=== PATIENT | male | born 1960 | race Hispanic/Latino ===

== ENCOUNTER 2018-09-02 10:26 | Emergency (ER) | payer OTHER ==
[~2018-09-02] VITALS: Ht 167.6 cm; Wt 63.5 kg
[2018-09-02] MEDS ORDERED: SODIUM CHLORIDE 0.9% 1000ML 1,000 ML IV SCH (10:45)
[2018-09-02] MEDS ORDERED: KETOROLAC TROMETHAMINE 30 MG/ML VIAL IV STA (10:53)
[2018-09-02 14:24] VITALS: BP 148/80
[2018-10-09] MEDS ORDERED: MULTI-VITAMIN1 EACH (10:29)
[2018-10-09] MEDS ORDERED: ALLOPURINOL (10:29)
== END 2018-09-02 13:55 | disposition home or self-care (01) ==
LOC: FSED 10:26
DX: R10.11 Right upper quadrant pain (principal)
CPT/HCPCS: 76705; 80053; 80307; 81003; 85025; 99284; J1885; J7030

== ENCOUNTER → 2018-09-14 | Outpatient (CLI) | payer OTHER ==
[~2018-09-14] MED LIST: ALLOPURINOL; DIATRIZOATE MEGL/DIATRIZOA SOD 30 ML BTL PO ONE; IOPAMIDOL 370 MG/ML 200 ML INFUS..BTL INJ ONE; MULTI-VITAMIN1 EACH; SODIUM CHLORIDE 0.9% 50ML 50 ML ONE
[2018-09-14 13:51] LABS: BLOOD UREA NITROGEN 9 mg/dL (7-26); BUN/CREATININE RATIO 12 (6-25); CREATININE, SERUM 0.78 mg/dL (0.72-1.25); EST GLOMERULAR FILTRATION RATE > 60 ML/MIN (60-)
--- NOTE | 2018-09-14 14:39 | Diagnostic Imaging Report ---
EXAM: CT Abdomen WITH contrast INDICATION: Right upper quadrant pain COMPARISON: 09/02/2018 ultrasound, no report available TECHNIQUE: Abdomen was scanned utilizing a multidetector helical scanner after administration of IV contrast. Coronal and sagittal reformations were obtained. IV CONTRAST: 100 mL Isovue-370 COMPLICATIONS: None RADIATION DOSE: Total DLP:176 mGy*cm Estimated effective dose: (DLP x 0.015 x size factor) mSv CTDIvol has been reviewed. It is below the limits set by the Radiation Protocol Committee (RPC). Appropriate CT dose reduction techniques were utilized. FINDINGS: Lung Bases: No acute findings. Solid Organs: Mild decreased attenuation of the liver suggesting steatosis. Probable bilobed cyst inferior right hepatic lobe series 2 image 32. Other To small to characterize hypodensities more superiorly image 12. Just inferior to the liver there is an ill-defined masslike area measuring 36 x 36 x 38 mm, best seen axial image 30 and sagittal image 55 with mild surrounding inflammation, directly adjacent to the hepatic flexure. 13 mm cystic lesion left kidney too small to definitively characterize. Solid organs otherwise unremarkable. Upper GI Tract: No small bowel obstructive changes. Vascularity: Mild to moderate aortic vascular calcifications with no aneurysm. Lymph Nodes: No suspicious adenopathy. Other: None. Bones: No acute findings. IMPRESSION: 38 mm focal region inferior to the liver with surrounding inflammation directly adjacent to hepatic flexure. Finding statistically represents a sequela of epiploic appendagitis and/or omental infarction. Given masslike appearance, underlying malignancy of the liver or: Not entirely excluded. Follow-up liver mass CT recommended in 4-6 weeks after resolution of acute symptoms. Signed by: Dr. Braden Caceres MD on 09/14/2018 2:36 PM
== END ==
LOC: CT 12:40
PROVIDERS: ATTEND Surgery
DX: R10.11 Right upper quadrant pain (principal)
CPT/HCPCS: 36415; 74160; 82565; 84520; Q9967

== ENCOUNTER → 2018-10-12 | Day surgery (SDC) | payer OTHER ==
[2018-10-09 11:16] LABS: BASOPHILS # (AUTO) 0.1 (0.0-0.1); BASOPHILS % 0.9 % (0.0-1.0); EOSINOPHILS # (AUTO) 0.1 (0.0-0.4); EOSINOPHILS % 1.1 % (0.0-6.0); HEMATOCRIT 40.3 % (38.2-49.6); HEMOGLOBIN 13.4 g/dL (14.0-18.0); LYMPHOCYTES % 35.1 % (18.0-39.1); MEAN CORPUSCULAR HGB CONC 33.3 g/dL (31-35); MEAN CORPUSCULAR VOLUME 90.2 fL (81-99); MONOCYTES # (AUTO) 0.5 (0.2-0.8); MONOCYTES % 9.7 % (4.4-11.3); PLATELET COUNT 210 x10e3/uL (140-360); RED BLOOD COUNT 4.47 x10e6/uL (4.3-5.7); RED CELL DISTRIBUTION WIDTH 12.8 % (11.7-14.4)
[2018-10-09 11:25] LABS: INR 0.91; PROTHROMBIN TIME 13.1 seconds (11.9-14.5)
[2018-10-09 11:26] LABS: PARTIAL THROMBOPLASTIN TIME 29.1 seconds (23.8-35.5)
[2018-10-09 11:35] LABS: ALANINE AMINOTRANSFERASE 18 IU/L (0-55); ALBUMIN 4.4 g/dL (3.5-5.0); ALBUMIN/GLOBULIN RATIO 1.5 (0.8-2.0); ALKALINE PHOSPHATASE 76 IU/L (40-150); BLOOD UREA NITROGEN 7 mg/dL (7-26); BUN/CREATININE RATIO 9 (6-25); CALCIUM 9.2 mg/dL (8.4-10.2); CARBON DIOXIDE 26 mmol/L (22-29); CHLORIDE 105 mmol/L (98-107); CREATININE, SERUM 0.77 mg/dL (0.72-1.25); EST GLOMERULAR FILTRATION RATE > 60 ML/MIN (60-); GLUCOSE 91 mg/dL (74-118); SODIUM 141 mmol/L (136-145)
--- NOTE | 2018-10-09 13:37 | Diagnostic Imaging Report ---
Frontal and lateral views of the chest. HISTORY: Preop, JOSR and colonoscopy COMPARISON: None available. DISCUSSION: Lungs: The lungs are well inflated. No evidence of a consolidative pneumonia or pulmonary alveolar edema. Pleura: No pleural effusion or pneumothorax. Heart and mediastinum: The cardiomediastinal silhouette appears unremarkable. Bones: No acute osseous lesion. Mild multilevel degenerative disc changes. IMPRESSION: No acute radiographic abnormality. Signed by: Dr. Mickey Davies D.O., M.M.M. on 10/09/2018 1:34 PM
[~2018-10-12] MED LIST changes: -DIATRIZOATE MEGL/DIATRIZOA SOD 30 ML BTL PO ONE; +FENTANYL CITRATE/PF 100MCG/2 ML INJ ONE; -IOPAMIDOL 370 MG/ML 200 ML INFUS..BTL INJ ONE; +LABETALOL HCL 5 MG/ML 20ML VIAL ONE; +MIDAZOLAM HCL 2 MG/2 ML VIAL ONE; +PROPOFOL IV EMULSION 10 MG/ML 20 ML VIAL ONE; -SODIUM CHLORIDE 0.9% 50ML 50 ML ONE
--- OUTSIDE RECORDS SUMMARY | 2018-10-12 05:07 | XMS REPORT ---
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 Allergies, Adverse Reactions, Alerts This patient has no known allergies or adverse reactions. Medications This patient has no known medications. Results Test Description Test Time Test Comments Text Results Atomic Results Result Comments CHEST 2 VIEWS 2018-10-09 13:33:00 [place] [address] Patient Name: SYBIL ENCINAS SR MR #: [id number] : 1960 Age/Sex: 58/M Req #: [id number] Adm Physician: Ordered by: OSKAR HUDSON MD Report #: [id number] Location: OR Room/Bed: Procedure: [id number] DX/CHEST 2 VIEWS Exam Date: 10/09/18 Exam Time: 1040 REPORT STATUS: Signed Frontal and lateral views of the chest. HISTORY: Preop, JOSR and colonoscopy COMPARISON: None available. DISCUSSION: Lungs: The lungs are well inflated. No evidence of a consolidative pneumonia or pulmonary alveolar edema. Pleura: No pleural effusion or pneumothorax. Heart and mediastinum: The cardiomediastinal silhouette appears unremarkable. Bones: No acute osseous lesion. Mild multilevel degenerative disc changes. IMPRESSION: No acute radiographic abnormality. Signed by: Dr. Rhett Davies D.O., M.M.M. on 10/09/2018 1:34 PM Dictated By: RHETT DAVIES DO 33 Transcribed By: OTIS on 10/09/181333 COPY TO: OSKAR HUDSON MD CT ABDOMEN W 2018-09-14 14:25:00 [place] [address] Patient Name: SYBIL ENCINAS SR MR #: [id number] : 1960 Age/Sex: 58/M Req #: [id number] Adm Physician: Ordered by: OSKAR HUDSON MD Report #: [id number] Location: CT Room/Bed: Procedure: [id number] CT/CT ABDOMEN W Exam Date: Exam Time: REPORT STATUS: Signed EXAM: CT Abdomen WITH contrast INDICATION: Right upper quadrant pain COMPARISON: 09/02/2018 ultrasound, no report available TECHNIQUE: Abdomen was scanned utilizing a multidetector helical scanner after administration of IV contrast. Coronal and sagittal reformations were obtained. IV CONTRAST: 100 mL Isovue-370 COMPLICATIONS: None RADIATION DOSE: Total DLP:176 mGy*cm Estimated effective dose: (DLP x 0.015 x size factor) mSv CTDIvol has been reviewed. It is below the limits set by the Radiation Protocol Committee (RPC). Appropriate CT dose reduction techniques were utilized. FINDINGS: Lung Bases: No acute findings. Solid Organs: Mild decreased attenuation of the liver suggesting steatosis. Probable bilobed cyst inferior right hepatic lobe series 2 image 32. Other To small to characterize hypodensities more superiorly image 12. Just inferior to the liver there is an ill-defined masslike area measuring 36 x 36 x 38 mm, best seen axial image 30 and sagittal image 55 with mild surrounding inflammation, directly adjacent to the hepatic flexure. 13 mm cystic lesion left kidney too small to definitively characterize. Solid organs otherwise unremarkable. Upper GI Tract: No small bowel obstructive changes. Vascularity: Mild to moderate aortic vascular calcifications with no aneurysm. Lymph Nodes: No suspicious adenopathy. Other: None. Bones: No acute findings. IMPRESSION: 38 mm focal region inferior to the liver with surrounding inflammation directly adjacent to hepatic flexure. Finding statistically represents a sequela of epiploic appendagitis and/or omental infarction. Given masslike appearance, underlying malignancy of the liver or: Not entirely excluded. Follow-up liver mass CT recommended in 4-6 weeks after resolution of acute symptoms. Signed by: Dr. Braden Caceres MD on 09/14/2018 2:36 PM Dictated By: BRADEN CACERES MD [id number] Transcribed By: OTIS on 09/14/18 1436 COPY TO: OSKAR HUDSON MD
[2018-10-12 10:05] VITALS: BP 166/100
--- NOTE | 2018-10-12 13:40 | Diagnostic Imaging Report ---
EXAM: FL BARIUM ENEMA DOUBLE CONTRAST INDICATION: Incomplete colonoscopy. COMPARISON: CT Abdomen/Pelvis 09/14/18. 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 Air was present in the colon from prior colonoscopy. BARIUM ENEMA: The rectum was cannulated and barium was administered. Given the presence of air from the recent colonoscopy, no additional air was administered. Exam is somewhat limited due to patient's inability to tolerate full contrast injection. The entire colon was opacified and demonstrates no evidence of mucosal abnormality or mass. Sigmoid diverticulosis is present. Spot images of the ileocecal valve demonstrates no abnormality. Fluoroscopy Time: 1.8 minutes Radiation dose: 139.87 mgy DAP IMPRESSION: Somewhat limited study due to patient's inability to tolerate complete contrast injection. Entire colon and ileocecal region was opacified and demonstrates no evidence of mass or stricture. Sigmoid diverticulosis. Signed by: Dr. Jalyn Walters MD on 10/12/2018 1:37 PM
== END | disposition home or self-care (01) ==
LOC: OR 05:04
PROVIDERS: ATTEND Surgery
DX: R10.11 Right upper quadrant pain (principal); K22.10 Ulcer of esophagus without bleeding; K21.0 Gastro-esophageal reflux disease with esophagitis; K44.9 Diaphragmatic hernia without obstruction or gangrene; K29.50 Unspecified chronic gastritis without bleeding; K56.1 Intussusception; K70.30 Alcoholic cirrhosis of liver without ascites; M10.9 Gout, unspecified; Z01.810 Encounter for preprocedural cardiovascular examination; Z01.812 Encounter for preprocedural laboratory examination; Z01.818 Encounter for other preprocedural examination; Z88.0 Allergy status to penicillin
CPT/HCPCS: 36415; 43239; 45378; 71046; 74270; 80053; 82378; 85025; 85610; 85730; 93005; J2250; J2704; J3490

== ENCOUNTER → 2022-01-22 | Day surgery (SDC) | payer BC, OTHER ==
[~2022-01-22] MED LIST changes: +AMLODIPINE BESYL5 MG PO; +BACITRACIN ZINC 15 GM OINT ONE; +BENICAR20 MG PO; +BUPIVACAINE HCL 0.5% INJ 30 ML VIAL INJ ONE; +CITALOPRAM HBR20 MG PO; +DEXAMETHASONE SOD PHOS INJ 4 MG/ML SDV ONE; +EPHEDRINE SULFATE INJ 50 MG/ML VIAL ONE; -LABETALOL HCL 5 MG/ML 20ML VIAL ONE; +LIDOCAINE HCL 2% LOCAL INJ 5 ML SDV VIAL INJ ONE; +ONDANSETRON HCL INJ 2MG/ML 2ML 2 MG/ML VIAL ONE; +POVIDONE IODINE 0.05% 0.05 % ML PO ONE; +PRILOSEC OTC20 MG PO; +SEVOFLURANE INHAL SOLN 250 ML PEN BTL ONE
[2022-01-22 14:55] VITALS: BP 122/71
== END | disposition home or self-care (01) ==
LOC: OR 11:25
PROVIDERS: ATTEND Podiatrist Foot & Ankle Surgery
DX: M66.872 Spontaneous rupture of other tendons, left ankle and foot (principal); K21.9 Gastro-esophageal reflux disease without esophagitis; I10 Essential (primary) hypertension; M10.9 Gout, unspecified; E78.00 Pure hypercholesterolemia, unspecified; F31.9 Bipolar disorder, unspecified; Z88.0 Allergy status to penicillin; Z01.810 Encounter for preprocedural cardiovascular examination; Z01.812 Encounter for preprocedural laboratory examination; Z20.822 Contact with and (suspected) exposure to COVID-19; Z79.899 Other long term (current) drug therapy; Z87.891 Personal history of nicotine dependence
CPT/HCPCS: 28200; 93005; J1100; J2001; J2250; J2405; J2704; J3010; U0002